=== PATIENT | female | born 1950 | race Caucasian/White ===

== ENCOUNTER 2017-12-16 10:42 | Outpatient (REF) | payer MEDICARE, BC, SELFPAY ==
[2017-12-16 21:07] LABS: Cholesterol 259 mg/dL (50-200); Glucose 88 mg/dL (70-100); HDL Cholesterol 99 mg/dL (40-60); LDL CHOLESTEROL 144 mg/dL (<100); Triglyceride 60 mg/dL (30-150)
== END 2017-12-16 11:02 ==
LOC: NCHCN 10:42
PROVIDERS: PCP Physician Assistant; Visit Provider Nurse Practitioner Family
DX: E78.5 Hyperlipidemia, unspecified (principal)
CPT/HCPCS: 80061; 82947; 83721

== ENCOUNTER 2019-07-19 09:35 | Outpatient (CLI) | payer MEDICARE, BC, SELFPAY ==
[2019-07-20 13:11] LABS: COVID-19 RT-PCR UVMMC Result Negative (Negative)
== END 2019-07-19 09:55 ==
PROVIDERS: PCP Physician Assistant; Visit Provider Nurse Practitioner Family
DX: Z03.818 Encounter for observation for suspected exposure to other biological agents ruled out (principal)
CPT/HCPCS: U0003

== ENCOUNTER 2021-08-02 13:41 | Emergency (ER) | payer MEDICARE, SELFPAY ==
[2021-08-02 13:44] VITALS: BP 141/69; PULSE 95; RESP 16; TEMP 36.4; O2SAT 98
--- NOTE | 2021-08-02 13:52 | ED.GENADUL_ITS ---
Discharge Plan Disposition Patient Disposition: HOME Condition: Improving Discharge Details Chief Complaint: Orthopedic Clinical Impression: Closed fracture of left distal radius Primary Care Provider: Don Brito ED Provider: Yovanny Sage Discharge Instructions Instructions: Wrist Fracture in Adults (ED) Additional Instructions: Elevate above the level of heart to reduce pain and swelling. Apply ice through the casting material to reduce swelling. May use Tylenol and/or ibuprofen as needed for pain. I have referred you to orthopedics. Due to your time constraints, please call the office Thursday morning at [phone] for a follow-up appointment. Return to the ER for any acute concerns. Keep the casting material clean and dry. May use a sling as needed for comfort Medical Decision Making 71-year-old female who slipped and fell on a carpeted floor last evening. She developed pain and swelling overnight of the left wrist. She did not injure herself in any other way. Patient presented to the ER with rings on the left ring finger which were removed. Her exam revealed swollen and tender left radius for which she was referred to x-ray which reveals a transverse left distal radius fracture and ulnar styloid fracture. Patient placed in sugar-tong splint and I will have her follow-up in orthopedics. HPI General Mode of arrival: ambulatory . Date/Time Provider Initiated Documentation: 08/02/21 13:48 . Limitations to Documentation: no limitations . Information obtained by: patient . History of Present Illness 71 year old F presents to the emergency department with the chief complaint of Fall, left wrist pain, described as moderate, Quality is described as dull, and is localized to the left and upper extremity. Patient reports no radiation. [place] started experiencing this hour(s) and it has been constant. Rest improves symptom(s), Movement worsens symptoms . Patient notes denies headaches and syncope. General Stated Complaint: Orthopedic AMANDO: 3 Review of Systems Narrative: Denies other injury, otherwise healthy, no recent illness PFSH All Active Problems (Updated 08/02/21 @ 15:04 by Yovanny Sage MD) Closed fracture of left distal radius (Acute) Social History Smoking risk assessment performed?: No Exam Narrative Exam Narrative: GEN: awake, alert, oriented 3. Pleasant, well groomed, interactive. HEAD: Normocephalic, atraumatic NECK: Full ROM, nontender CHEST/RESP: Nontender, no respiratory distress EXT: Full ROM, left distal radius tender, swollen, ecchymosis present. Distal motor and sensory function is intact. Cap refill less than 2 Neuro: Grossly normal neurologic exam, conversant, interactive. Psych: Speech fluent, thoughts congruent, affect normal Course Vital Signs Vital signs: Vital Signs Temperature 36.4 C L 08/02/21 13:44 Pulse 95 H 08/02/21 13:44 Respiratory Rate 16 08/02/21 13:44 Blood Pressure 141/69 H 08/02/21 13:44 Pulse Oximetry 98 08/02/21 13:44 Temperature 36.4 C L 08/02/21 13:44 Temperature Source Skin 08/02/21 13:44 Pulse 95 H 08/02/21 13:44 Respiratory Rate 16 08/02/21 13:44 Blood Pressure 141/69 H 08/02/21 13:44 Blood Pressure Position Sitting 08/02/21 13:44 Pulse Oximetry 98 08/02/21 13:44 Oxygen Delivery Method Room Air 08/02/21 13:44 Oxygen Flow Rate 0 08/02/21 13:44 Pain Level 8 08/02/21 13:44 Procedures Orthopedic Splinting/Casting Injury #1: Side: left Upper Extremity Injury Location: wrist Upper Extremity Immobilizer: sugartong splint
[2021-08-02] MEDS: Ibuprofen 600 MG TAB PO (14:12)
--- NOTE | 2021-08-02 14:20 | DI.RAD_ITS ---
Exam(s) XR WRIST LT COMPLETE EXAM: XR WRIST LT COMPLETE CLINICAL HISTORY: fall, pain. TECHNIQUE: 2D digital imaging was performed of the left wrist. Three images were obtained. PA, obl ique and lateral views were obtained. COMPARISON: No exams were available for comparison FINDINGS: BONES: There is an acute transverse fracture through the distal metaphysis of the left radius. There is slight posterior displacement and angulation of the fracture noted. There is a question of exten ghulam of the fracture into the radiocarpal joint medially. No bony destructive lesion is seen. There is a mildly displaced ulnar styloid process fracture. JOINTS: The carpal bones are normally aligned. SOFT TISSUE: Normal. IMPRESSION: Distal left radial and ulnar fractures. DATA REPOSITORY: RADIATION DOSE DELIVERED:
== END 2021-08-02 15:22 | disposition home or self-care (01) ==
PROVIDERS: Emergency Provider Emergency Medicine; PCP Internal Medicine
DX: S52.592A Other fractures of lower end of left radius, initial encounter for closed fracture (principal); W01.0XXA Fall on same level from slipping, tripping and stumbling without subsequent striking against object, initial encounter
CPT/HCPCS: 29125; 99283; 73110

== ENCOUNTER 2021-08-05 08:56 | Outpatient (CLI) | payer MEDICARE, SELFPAY ==
[2021-08-05 11:22] LABS: Source Nasal/Nares
[2021-08-05 19:41] LABS: COVID-19 PCR Negative (Negative)
== END 2021-08-05 08:57 | disposition home or self-care (01) ==
LOC: LBO 08:57
PROVIDERS: PCP Internal Medicine; Visit Provider Student in an Organized Health Care Education/Training Program
DX: Z20.822 Contact with and (suspected) exposure to COVID-19 (principal); Z01.818 Encounter for other preprocedural examination
CPT/HCPCS: 87635

== ENCOUNTER 2021-08-06 06:12 | Day surgery (SDC) | payer MEDICARE, SELFPAY ==
[2021-08-06 06:15] VITALS: BP 132/72; PULSE 83; RESP 16; TEMP 36.3; O2SAT 97
--- NOTE | 2021-08-06 06:43 | ANES.PREOP_ITS ---
General Info Date of Service Date Performed: 08/06/21 Height: 5 ft 3 in Weight: 64.4 kg Body Mass Index (BMI): 25.1 Surgical Procedure: Operation Date: 08/06/21 07:40 Proposed Procedure Side Surgeon p Closed Reduction Distal Radius/ Casting Left Napoleon Duke MD Meds Allergies and Home Medications Allergies Allergy/AdvReac Type Severity Reaction Status Date / Time Sulfa (Sulfonamide Allergy Intermediate Other (See Unverified 08/06/21 06:31 Antibiotics) Comment) Home Medication Medication Instructions Recorded L.acidophil,rhamnosus-B.breve,longum 1 cap PO DAILY 08/05/21 20 billion cell sprinkle capsule (Probiotic) acetaminophen 500 mg tablet 500 mg PO DIRECTED 08/05/21 ascorbic acid (vitamin C) 500 mg 1,000 mg PO DAILY 08/05/21 tablet (Vitamin C) calcium carbonate 600 mg-vitamin 1 tab PO DAILY 08/05/21 D3 5 mcg (200 unit) tablet flaxseed oil 1,000 mg capsule 1,200 mg PO DAILY 08/05/21 ibuprofen 200 mg tablet 400 mg PO Q4H PRN 08/05/21 magnesium 100 mg tablet 100 - 200 mg PO DAILY 08/05/21 Current Visit Medications: Current Medications Generic Name Dose Route Start Last Admin Trade Name Freq PRN Reason Stop Dose Admin Ringer's Solution 1,000 mls @ 80 mls/hr 08/06/21 06:00 IV 09/04/21 23:59 INFUSION EWELINA IV Miscellaneous Supplies 1 each 08/06/21 06:00 Iv Access IV 09/04/21 23:59 DIRECTED EWELINA Sodium Chloride 0 ml 08/06/21 06:00 Normal Saline Flush 10 Ml Syr IV 09/04/21 23:59 PRN PRN Sodium Chloride 0 ml 08/06/21 06:00 Normal Saline 10 Ml Vial IJ 09/04/21 23:59 DIRECTED PRN Sterile Water 0 ml 08/06/21 06:00 Water,Injection,Sterile 10 Ml Vial IJ 09/04/21 23:59 DIRECTED PRN PFSH Active Problems Active Problems: Problem Status Onset Code Closed fracture of left distal radius S52.502A Medical History Medical History History of diverticulosis Hx of colonic polyp Hx of osteopenia Medical History Comments:: Per pt. states when she had a colonoscopy, during her recovery she had low BP, stated the top number was around 85, they gave me extr a fluids and it went back up Surgical History Surgical History Hx of colonoscopy Tobacco Smoking/Tobacco Use Status: Former Tobacco Use Alcohol Alcohol Intake: current Alcohol intake frequency: 0-2 drinks per day Alcohol type: wine Substance Use Substance use: Never Substance use type: does not use Vital Signs and Lab Results Vital Signs Most Recent Vital Signs in EMR: Most Recent Vital Signs Temp Pulse Resp BP Pulse Ox 36.3 C L 83 16 132/72 97 08/06/21 06:15 08/06/21 06:15 08/06/21 06:15 08/06/21 06:15 08/06/21 06:15 Lab Results Blood Type / Crossmatch: No Data to Display Complete Blood Count: No Data to Display Complete Metabolic Panel: No Data to Display Liver Function Panel: No Data to Display Coagulation Panel: No Data to Display Cardiac Panel: No Data to Display Arterial Blood Gas: No Data to Display Venous Blood Gas: No Data to Display Pancreas Panel: No Data to Display Thyroid Panel: No Data to Display Infectious Disease: Coronavirus (COVID-19)(PCR) Negative (Negative) 08/05/21 10:25 Coronavirus 2019 Source Nasal/Nares 08/05/21 10:25 Blood Cultures: No Data to Display Toxicology Panel: No Data to Display Anesthesia Assessment and Plan Anesthesia History Personal History: Other Family History: No Family History of Anesthesia Complications Exercise Tolerance Exercise Tolerance: Metabolic Equivalents>4 Pertinent Negatives Pertinent Negatives: No Symptoms of GERD, No Major Cardiovascular Symptoms or Complaints, No Major Pulmonary Symptoms or Complaints and No History of CVA/TIA Cardiac & Pulmonary Exam Cardiac Exam: Normal S1/S2 Heart Sounds Pulmonary Exam: Clear Bilateral Breath Sounds Implantable Cardiac Device Does patient have a Pacemaker or an ICD?: No Airway Exam Known Difficult Airway: No Mallampati Class: 2 Mouth Opening: Normal (> 3cm) Thyromental Distance: Greater than 3 cm Neck Range of Motion: Full ROM Neck Circumference: Normal Teeth Condition: Normal Dentition ASA Classification ASA Score: ASA 2 Emergency Case?: No NPO Status NPO Status: NPO Clears >2 hours, Solids >8 hours Anesthesia Plan Resuscitation Status: Full Code Anesthesia Technique: General Anesthesia Airway Planned: Natural Airway Monitors Used: Standard Monitors
--- NOTE | 2021-08-06 06:45 | DI.RAD_ITS ---
Exam(s) XR WRIST LT LIMITED EXAM: XR WRIST LT LIMITED CLINICAL HISTORY: fractured left distal radius TECHNIQUE: 2D and realtime digital imaging was performed. COMPARISON: CR XR WRIST LT COMPLETE from 08/02/2021 FINDINGS: C-arm fluoroscopy was utilized by Dr. Duke during apparent reduction of fracture of the distal ra dius. Hard copy show the wrist in a cast which obscures bony detail. IMPRESSION: RADIATION DOSE DELIVERED: raul Cid=0.01 mGy Total DLP
[2021-08-06] MEDS: Lactated Ringers 1,000 ML 80 ML IV (06:49)
--- NOTE | 2021-08-06 06:49 | W.ANESPRE ---
General Info Date of Service Date Performed: 08/06/21 Height: 5 ft 3 in Weight: 64.4 kg Body Mass Index (BMI): 25.1 Surgical Procedure: Operation Date: 08/06/21 07:40 Proposed Procedure Side Surgeon p Closed Reduction Distal Radius/ Casting Left Napoleon Duke MD Meds Allergies and Home Medications Allergies Allergy/AdvReac Type Severity Reaction Status Date / Time Sulfa (Sulfonamide Allergy Intermediate Other (See Unverified 08/06/21 06:31 Antibiotics) Comment) Home Medication Medication Instructions Recorded L.acidophil,rhamnosus-B.breve,longum 1 cap PO DAILY 08/05/21 20 billion cell sprinkle capsule (Probiotic) acetaminophen 500 mg tablet 500 mg PO DIRECTED 08/05/21 ascorbic acid (vitamin C) 500 mg 1,000 mg PO DAILY 08/05/21 tablet (Vitamin C) calcium carbonate 600 mg-vitamin 1 tab PO DAILY 08/05/21 D3 5 mcg (200 unit) tablet flaxseed oil 1,000 mg capsule 1,200 mg PO DAILY 08/05/21 ibuprofen 200 mg tablet 400 mg PO Q4H PRN 08/05/21 magnesium 100 mg tablet 100 - 200 mg PO DAILY 08/05/21 Current Visit Medications: Current Medications Generic Name Dose Route Start Last Admin Trade Name Freq PRN Reason Stop Dose Admin Ringer's Solution 1,000 mls @ 80 mls/hr 08/06/21 06:00 IV 09/04/21 23:59 INFUSION EWELINA IV Miscellaneous Supplies 1 each 08/06/21 06:00 Iv Access IV 09/04/21 23:59 DIRECTED EWELINA Sodium Chloride 0 ml 08/06/21 06:00 Normal Saline Flush 10 Ml Syr IV 09/04/21 23:59 PRN PRN Sodium Chloride 0 ml 08/06/21 06:00 Normal Saline 10 Ml Vial IJ 09/04/21 23:59 DIRECTED PRN Sterile Water 0 ml 08/06/21 06:00 Water,Injection,Sterile 10 Ml Vial IJ 09/04/21 23:59 DIRECTED PRN PFSH Active Problems Active Problems: Problem Status Onset Code Closed fracture of left distal radius S52.502A Medical History Medical History History of diverticulosis Hx of colonic polyp Hx of osteopenia Medical History Comments:: Per pt. states when she had a colonoscopy, during her recovery she had low BP, stated the top number was around 85, they gave me extra fluids and it went back up Surgical History Surgical History Hx of colonoscopy Tobacco Smoking/Tobacco Use Status: Former Tobacco Use Alcohol Alcohol Intake: current Alcohol intake frequency: 0-2 drinks per day Alcohol type: wine Substance Use Substance use: Never Substance use type: does not use Vital Signs and Lab Results Vital Signs Most Recent Vital Signs in EMR: Most Recent Vital Signs Temp Pulse Resp BP Pulse Ox 36.3 C L 83 16 132/72 97 08/06/21 06:15 08/06/21 06:15 08/06/21 06:15 08/06/21 06:15 08/06/21 06:15 Lab Results Blood Type / Crossmatch: No Data to Display Complete Blood Count: No Data to Display Complete Metabolic Panel: No Data to Display Liver Function Panel: No Data to Display Coagulation Panel: No Data to Display Cardiac Panel: No Data to Display Arterial Blood Gas: No Data to Display Venous Blood Gas: No Data to Display Pancreas Panel: No Data to Display Thyroid Panel: No Data to Display Infectious Disease: Coronavirus (COVID-19)(PCR) Negative (Negative) 08/05/21 10:25 Coronavirus 2019 Source Nasal/Nares 08/05/21 10:25 Blood Cultures: No Data to Display Toxicology Panel: No Data to Display Anesthesia Assessment and Plan Anesthesia History Personal History: No History of Anesthesia Complications Family History: No Family History of Anesthesia Complications and Malignant Hyperthermia Exercise Tolerance Exercise Tolerance: Metabolic Equivalents>4 Cardiac & Pulmonary Exam Cardiac Exam: Normal S1/S2 Heart Sounds Pulmonary Exam: Clear Bilateral Breath Sounds Implantable Cardiac Device Does patient have a Pacemaker or an ICD?: No Airway Exam Known Difficult Airway: No Mallampati Class: 2 Mouth Opening: Normal (> 3cm) Thyromental Distance: Greater than 3 cm Neck Range of Motion: Full ROM Neck Circumference: Normal Teeth Condition: Normal Dentition ASA Classification ASA Score: ASA 2 Emergency Case?: No NPO Status NPO Status: NPO Clears >2 hours, Solids >8 hours Anesthesia Plan Resuscitation Status: Full Code Anesthesia Technique: General Anesthesia Airway Planned: Natural Airway Monitors Used: Standard Monitors
--- NOTE | 2021-08-06 07:07 | HPE_ITS ---
Assessment and Plan Assessment and plan (1) Closed fracture of left distal radius: Status: Acute Assessment and plan: Ciarra is a 71-year old who suffered a closed fracture of her left distal radius. Given the dorsal displacement and angulation I recommended that we proceed with a closed reduction and casting. There does not appear to be significant comminution about the fracture site and no significant intra- articular involvement which would make this amenable to closed treatment. I did discuss her options to include leaving it where it is knowing that her function will likely be okay versus a close reduction recommended versus surgical fix ation. She agrees to proceed with a close reduction. I did discuss the risk of the close reduction to include loss of reduction, malunion, nonunion, pain, stiffness, cast complications, need for repeat procedures. Despite these risk, she elects to proceed. History of Present Illness History of Present Illness Chief Complaint: Left wrist fracture Narrative: Ciarra is a 71-year-old who had a fall landing on her left hand. She had immediate pain and deformity. She was seen in the emergency department and diagnosed with a left distal radius fracture. She is placed into a sugar-tong splint. I have reviewed the x-rays presented by the emergency department and recommended a close reduction. I called Ciarra with these recommendations and she agreed to proceed. She is here today for close reduction and casting. She denies having any significant pain. She denies numbness or tingling. She does have some discomfort from the splint at the level of her fingers and her elbow. She denies any head trauma at time of injury. Review of Systems All systems reviewed & are unremarkable except as noted in HPI and below PFSH All Active Problems Closed fracture of left distal radius (Acute) Medical History History of diverticulosis Hx of colonic polyp Hx of osteopenia Surgical History Hx of colonoscopy Social History Smoking/Tobacco Use Status: Former Tobacco Use Quit Date: 03/16/77 Smoking risk assessment performed?: Yes Alcohol Intake: current Alcohol Intake frequency: 0-2 drinks per day Alcohol type: wine Drug use: Never Substance use type: does not use Do you feel safe at home: Yes Do you feel safe in your relationship?: Yes Meds Allergies and Home Medications Allergies Allergy/AdvReac Type Severity Reaction Status Date / Time Sulfa (Sulfonamide Allergy Intermediate Other (See Unverified 08/06/21 06:31 Antibiotics) Comment) Home Medications Medication Instructions Recorded Confirmed Type L.acidophil,rhamnosus-B.breve,longum 1 cap PO DAILY 08/05/21 08/06/21 History 20 billion cell sprinkle capsule (Probiotic) acetaminophen 500 mg tablet 500 mg PO DIRECTED 08/05/21 08/06/21 History ascorbic acid (vitamin C) 500 mg 1,000 mg PO DAILY 08/05/21 08/06/21 History tablet (Vitamin C) calcium carbonate 600 mg-vitamin 1 tab PO DAILY 08/05/21 08/06/21 History D3 5 mcg (200 unit) tablet flaxseed oil 1,000 mg capsule 1,200 mg PO DAILY 08/05/21 08/06/21 History ibuprofen 200 mg tablet 400 mg PO Q4H PRN 08/05/21 08/06/21 History magnesium 100 mg tablet 100 - 200 mg PO DAILY 08/05/21 08/06/21 History Exam Resp Auscultation: clear to auscultation bilaterally Cardio Rate: regular rate Rhythm: regular rhythm Extrem Other: Sugar-tong splint about the left arm. There is some swelling of the digits. Cap refill less than 2 seconds. Sensation intact light touch of the median, r adial, ulnar nerve. Results Imaging Imaging Studies: X-ray of the left wrist performed in emergency department shows a distal radius fracture, primarily metaphyseal although there may be a small intra-articular split by the radial styloid. There is some posterior translation and dorsal angulation of about 25 degrees. Last Vital Signs Temp 36.3 C L 08/06/21 06:15 Pulse 83 08/06/21 06:15 Resp 16 08/06/21 06:15 BP 132/72 08/06/21 06:15 Pulse Ox 97 08/06/21 06:15
--- NOTE | 2021-08-06 07:11 | W.PM.DSUDISC ---
Discharge Plan Disposition Patient Disposition: HOME Condition: Good Discharge Details Reason For Visit: (L) DISTAL RADIUS FX Attending Provider: Napoleon Duke Primary Care Provider: Don Brito Home Meds and New Rx's Prescriptions: Continued calcium carbonate-vitamin D3 600 mg-5 mcg (200 unit) Tablet 1 tab PO DAILY acetaminophen 500 mg Tablet 500 mg PO DIRECTED flaxseed oil 1,000 mg Capsule 1,200 mg PO DAILY ascorbic acid (vitamin C) [Vitamin C] 500 mg Tablet 1,000 mg PO DAILY magnesium 100 mg Tablet 100 - 200 mg PO DAILY ibuprofen 200 mg Tablet 400 mg PO Q4H PRN Probiotic 20 billion cell Capsule, Sprinkle 1 cap PO DAILY Discharge Instructions Additional Instructions: Wrist Fracture Closed Reduction Discharge Instructions Activity: You should keep the hand/wrist elevated as much as possible for the first few days. You may use the other fingers as tolerated but avoid trying to do too much too soon. You may perform light activities with the cast in place. Dressing/Cast: Your cast should stay in place at all times. Do NOT get it wet. Medications: - You should take Tylenol (1000mg every 8 hours as needed) and Ibuprofen (600mg every 8 hours as needed) for baseline pain control. - You shouldn't need anything stronger but if you are having pain not controlled, please call Dr. Duke's office to discuss- [phone] - You may apply ice over the wrist, just double bag so it doesn't get wet. Follow-up: 1 week with x-rays Referrals: Napoleon Duke MD [ [facility] STAFF PHYSICIAN] - Equipment/Supplies: Cast Activity:: Elevate Remove Dressings/Wound Care:: Do Not Remove Shower/Bathe:: Cover Diet:: As Tolerated Discharge Orders Discharge Orders: Discharge Order (Routine); Ordered 08/06/21 Ordered By: Martine Royal DS: Diagnosis Discharge Diagnosis (1) Closed fracture of left distal radius: Status: Acute
[2021-08-06 07:25] VITALS: BMI 25.1
[2021-08-06] MEDS: Bupivacaine 0.5% Pres-Free 30 ML VIAL (07:32)
[2021-08-06 07:45] VITALS: BP 119/62; PULSE 69; RESP 16; TEMP 35.9; O2SAT 96
--- NOTE | 2021-08-06 07:48 | W.ANESPOSTOP ---
Postoperative Evaluation Date, Time and Location Date Performed: 08/06/21 Time Performed: 07:49 Patient Location: Day Surgery Unit Vital Signs Most Recent Imported Vital Signs: Most Recent Vital Signs Temp Pulse Resp BP Pulse Ox 36.3 C L 83 16 132/72 97 08/06/21 06:15 08/06/21 06:15 08/06/21 06:15 08/06/21 06:15 08/06/21 06:15 Pain Score Most Recent Pain Score: Most Recent Pain Score Pain Level 3 08/06/21 06:15 Assessment Mental Status: Arousable with meaningful communication Airway and Respiratory Function: Patent airway with normal (patient baseline) respiratory exam Cardiovascular Function: Hemodynamically Stable Hydration Status: Adequately Hydrated Nausea & Vomiting: No Nausea or Vomiting Pain: Pain is tolerable per patient Peripheral Nerve Block: Patient did not receive a nerve block
[2021-08-06] MEDS: Acetaminophen 325 MG TAB 650 MG PO (08:14)
[2021-08-06 08:15] VITALS: BP 132/70; PULSE 72; RESP 18; TEMP 36.2; O2SAT 100
--- NOTE | 2021-08-06 12:59 | W.PM.OP ---
Date of service: 08/06/21 Time of Service: 07:44 Operative Note Operative Note DATE OF PROCEDURE: 08/06/21 PRE-OP DIAGNOSIS: Left Distal Radius Fracture POST-OP DIAGNOSIS: same PROCEDURE: Closed Reduction and Casting of Left Distal Radius Fracture SURGEON: Napoleon Duke TIE CUTTER: Martine Royal ANESTHESIA TYPE: General:No Airway Refer to Anesthesia Record ESTIMATED BLOOD LOSS: 0 TOURNIQUET TIME: 0 COMPLICATIONS: None Indications: Ciarra is a 71-year-old who had a fall onto an outstretched left hand suffering a distal radius fracture. There was displacement with dorsal angulation. Therefore, I recommended close reduction and casting. I reviewed the risk of this with her. These included but were not limited to loss of reduction, malunion, nonunion, need for repeat procedures, cast complications. Despite these risk, she elected to proceed. Findings: There was a dorsally displaced and angulated fracture of the distal radius which is reduced with close reduction. A cast was applied. Procedure Description: Ciarra was greeted the preoperative holding area. Her identity was confirmed the correct site was identified and marked. The consent was reviewed the patient and signed. History physical was updated. She was taken to the operating room. General anesthesia was administered. A timeout was performed for safe surgery. No prophylactic antibiotics are necessary. The splint from the left arm was removed. A hematoma block was performed at the fracture site from a dorsal approach with 10 cc of 0.25% bupivacaine. A close reduction was then performed utilizing recreation of the deformity, traction, and manipulation. The hand was then placed into finger traps and x-ray was obtained. This showed near complete reduction of the fracture site with some slight dorsal translation. This was manipulated a few times but was unable to fully correct the translation although the angulation was much improved. With the arm still in finger traps a short arm cast was applied. This was a well molded cast making sure to pad all bony prominences cast was molded and x-rays utilized to check the reduction. Final x-rays were obtained. The cast was not bivalved given the limited swelling and the duration from the initial injury. She was awakened from anesthesia and transferred back to the PACU in stable condition
== END 2021-08-06 08:47 | disposition home or self-care (01) ==
PROVIDERS: PCP Internal Medicine; Visit Provider Student in an Organized Health Care Education/Training Program
PROC: (CPT 25605; principal; 2021-08-06 07:30)
DX: S52.502A Unspecified fracture of the lower end of left radius, initial encounter for closed fracture (principal); W19.XXXA Unspecified fall, initial encounter; Z87.891 Personal history of nicotine dependence
CPT/HCPCS: 25605; 73100; J1885; J2405

== ENCOUNTER 2021-08-15 12:27 | Outpatient (CLI) | payer MEDICARE, SELFPAY ==
--- NOTE | 2021-08-15 12:15 | DI.RAD_ITS ---
Exam(s) XR WRIST LT LIMITED EXAM: XR WRIST LT LIMITED CLINICAL HISTORY: S/P CLOSED REDUCTION L DISTAL RADIUS. TECHNIQUE: 2D digital imaging was performed. COMPARISON: CR XR WRIST LT COMPLETE from 08/02/2021 FINDINGS: Two views AP and lateral in cast views compared 522 There is stable position alignment fracture fragments. No significant ulnar variance. No additional fractures. No obvious scaphoid fracture IMPRESSION: DATA REPOSITORY: RADIATION DOSE DELIVERED:
== END 2021-08-15 12:28 | disposition home or self-care (01) ==
LOC: DIORS 12:27
PROVIDERS: PCP Internal Medicine; Referring Provider Internal Medicine; Visit Provider Student in an Organized Health Care Education/Training Program
DX: S52.502A Unspecified fracture of the lower end of left radius, initial encounter for closed fracture (principal); X58.XXXA Exposure to other specified factors, initial encounter; Z47.89 Encounter for other orthopedic aftercare
CPT/HCPCS: 73100

== ENCOUNTER 2021-08-22 11:16 | Outpatient (CLI) | payer MEDICARE, SELFPAY ==
--- NOTE | 2021-08-22 11:00 | DI.RAD_ITS ---
Exam(s) XR WRIST LT LIMITED EXAM: XR WRIST LT LIMITED CLINICAL HISTORY: f/u closed reduction left wrist frx. TECHNIQUE: 2D digital imaging was performed. COMPARISON: CR XR WRIST LT LIMITED from 08/15/2021 FINDINGS: Three in cast views Stable alignment at the mildly impacted fracture site in the distal radius. Fracture line still evid ent. No new additional fractures identified. IMPRESSION: DATA REPOSITORY: RADIATION DOSE DELIVERED:
--- OUTSIDE RECORDS SUMMARY | 2021-08-22 11:17 | XMS_ITS | Continuity of Care Document ---
:1950 Author Organization [facility] Address [address] [place] [address] Allergies, Adverse Reactions, Alerts No allergy information available. Medications No medication information available. Problem List No problem information available. Procedures No known history of procedures. Relevant Diagnostic Tests and/or Laboratory Data No known relevant diagnostic tests, laboratory data, and/or discharge summary. Hospital Discharge Instructions No known hospital discharge instructions. Functional Status No known functional status. Immunizations No known immunizations. Plan of Care No Known Plan of Care Information Social History No known social history. Vital Signs No known vital signs results.
--- OUTSIDE RECORDS SUMMARY | 2021-08-22 11:17 | XMS_ITS ---
:1950 Author Care Team Providers Name Role Phone WHITNEY JEAN BAPTISTE MD Primary Care Provider [phone] ROBERT MONTERROSO MD General Surgeon Unavailable Allergies Code Code System Name Reaction Severity Status Onset Sulfa (Sulfonamide Antibiotics) Edema ? Active ? Medications Name Status Start Date Stop Date ? ? Acidophilus Active ? Not available Take 1 tablet daily Ambien CR 6.25 mg tablet,extended release Completed 200907/20/2009 1 (one) Tablet ER: At bedtime as needed calcium carbonate 600 mg-vitamin D3 10 mcg (400 unit) tablet Act tiera ? Not available Take 1 tablet every day by oral route. Cipro 500 mg tablet Completed 10/16/2011 10/19/2011 1 (one) Tablet: Bid - twice daily citalopram 20 mg tablet Completed ? 07/02/19 22 Take 0.5 tablets every day by oral route. Fosamax 70 mg tablet Completed 07/06/2006 01/11/2007 1 Tablet: qweek L-Lysine 500 mg tablet Active ? Not avail able Take 2 tablets every day by oral route. lorazepam 0.5 mg tablet Active ? Not avai lable Take 1 tablet twice a day by oral route as needed. magnesium Active ? Not available Take 1 tablet daily [place] 3 Active ? Not available Take 1 tablet daily prednisone 10 mg tablet Completed ? 12/02/19 20 Prempro 0.3 mg-1.5 mg tablet Completed 01/16/2006 1 (one) Tablet: Daily Shingrix (PF) 50 mcg/0.5 mL intramuscular Active ? Not available suspension, kit triamcinolone acetonide 0.1 % topical cream Active ? Not available APPLY A THIN LAYER TO THE AFFECTED AREA(S) BY TOPICAL ROUTE 2 T IMES PER DAY Vitamin C 1,000 mg tablet Active ? Not av ailable Take 1 tablet every day by oral route. zolpidem 5 mg tablet Active ? Not availab le Take 1 tablet(s) as needed by oral route at bedtime. Problems Name Status Onset Date Source ? Hyperlipidemia Active 04/15/2021 ? Anxiety Active 04/15/2021 ? [place] Node Active 04/15/2021 ? Insomnia Active ? History Menopausal Symptom Active ? History Screening Mammography Unknown ? History Procedures Date Name Performed by ? 07/08/2021 Colonoscopy Information not avai lable Notes: polyp of transverse colon, dive rticulosis of colon 11/13/2017 MAMMO, Screening, Tomosynthesis, [facility] (Internal) Bilateral [address] [place] [address] (Work Place) 08/19/2019 MAMMO, Screening, Tomosynthesis, [facility] (Internal) Bilateral [address] [place] [address] (Work Place) 12/02/2019 MAMMO, Screening, Tomosynthesis, [facility] (Internal) Bilateral [address] [place] [address] (Work [address]) 12/02/2019 DEXA, Axial Skeleton [facility] (Internal) [address] [place] [address] (Work Place) Results Lab Results Date Name Specimen Result Interpretation Description Value Range Status Address ? 07/08/2021 Pathology TISS ? Report (see ? Final No rth Study below) [facility] (Internal) : [address] 12/02/2019 Urinalysis, UR ? UA-col pale pale Final [place] Dipstick, or yellow yellow [facility] (Internal) : [address] ? ? UR ? UA-maranda clear clear Final [facility] (Internal) : [address] ? ? UR ? UA-spe 1.010 1.003-1.0 Final [facility] (Internal) : [address] ? ? UR ? UA-pH 6.0 [pH] 4.6-8.0 Final [place] [pH] [facility] (Internal) : [address] ? ? UR ABNORMAL UA-francisco trace negative Final [place] k Est [facility] (Internal) : [address] ? ? UR ? UA-nit negative negative Final [place] rite [facility] (Internal) : [address] [place] ? ? UR ? UA-pro negative negative Final [place] t [facility] (Internal) : [address] [place] ? ? UR ? UA-glu negative negative Final [place] c [facility] (Internal) : [address] [place] ? ? UR ? UA-ket negative negative Final [place] one [facility] ab (Internal) : [address] ? ? UR ? UA-uro normal normal Final [place] flor [facility] (Internal) : [address] [place] ? ? UR ? UA-flor negative negative Final [place] i [facility] ab (Internal) : [address] ? ? UR ABNORMAL UA-blo trace negative Final [place] od [facility] ab (Internal) : [address] 12/02/2019 Urinalysis, UR ? UA-WBC 0-3 [hpf] 0-3 [hpf] F inal [place] [facility] (Internal) : [address] [place] ? ? UR ? UA-RBC 0-2 [hpf] 0-2 [hpf] Final [place] th [facility] ab (Internal) : [address] [place] ? ? UR ? UA-lubna rare none seen Final [place] teria [hpf] [hpf] [facility] ab (Internal) : [address] ? ? UR ? UA-epi rare none seen Final [place] thelial [hpf] [hpf] [facility] ab (Internal) : [address] [place] ? ? UR ? UA-muc none seen none seen Final Nor th us [hpf] [hpf] [facility] ab (Internal) : [address] 12/02/2019 Pap Test, MISC ? Hpv see ? Final Nor th Thinprep, report [facility] (Internal) : [address] ? ? MISC ? Pap see ? Final North report [facility] (Internal) : [address] ? ? MISC ? Report (see ? Final North below) [facility] (Internal) : [address] Past Encounters None recorded. Social History Tobacco Smoking Status Never Smoker Vaccine List Vaccine Type COVID-19, mRNA, LNP-S, PF, 30 mcg/0.3 mL dose ([place]) 05/15/2020 06/11/2020 12/13/2020 Td (adult), adsorbed Plan of Care Reminders Provider Appointments None recorded. ? ? Lab None recorded. ? ? Referral None recorded. ? ? Procedures None recorded. ? ? Surgeries None recorded. ? ? Imaging None recorded. ? ? Vitals 12/02/2019 01:40PM HME 20 Weight Blood Pressure 61.42 kg 126/78 mm[Hg] 11/13/2017 03:00PM HME 20 Height Weight BMI Blood Pressure 157.48 cm 63.19 kg 25.5 kg/m2 138/76 mm[Hg] 10/25/2015 Blood Pressure 110/80 mm[Hg] 10/25/2015 Height 159.38 cm 01/12/2014 Height Weight 159.38 cm 5.9 kg 01/12/2014 Blood Pressure 122/80 mm[Hg] 12/30/2012 Height Weight 159.38 cm 58.97 kg 12/30/2012 Blood Pressure 112/60 mm[Hg] 11/24/2011 Blood Pressure 112/80 mm[Hg] 11/24/2011 Height Weight 159.38 cm 63.05 kg 11/13/2010 Height Weight 159.38 cm 61.69 kg 11/13/2010 Blood Pressure 126/80 mm[Hg] 07/20/2009 Height Weight 159.38 cm 59.42 kg 07/20/2009 Blood Pressure 110/64 mm[Hg] 04/30/2009 Height Weight 159.38 cm 59.42 kg 04/30/2009 Blood Pressure 112/60 mm[Hg] 02/23/2008 Blood Pressure 112/62 mm[Hg] 02/23/2008 Height Weight 159.38 cm 58.97 kg 01/11/2007 Height Weight 160.02 cm 58.97 kg 01/11/2007 Blood Pressure 108/76 mm[Hg] 12/24/2005 Blood Pressure 120/80 mm[Hg] 12/24/2005 Height Weight 160.02 cm 58.06 kg 11/11/2004 Height Weight 162.56 cm 57.15 kg 11/11/2004 Blood Pressure 116/76 mm[Hg]
--- OUTSIDE RECORDS SUMMARY | 2021-08-22 11:17 | XMS_ITS | Continuity of Care Document ---
:1950 Author Organization [facility] Address [address] [place] [address] Allergies, Adverse Reactions, Alerts No allergy information [...]
--- OUTSIDE RECORDS SUMMARY | 2021-08-22 11:17 | XMS_ITS | Continuity of Care Document ---
:1950 Author Organization [facility] Address [address] [place] [address] Phone Support Name Relationship Address Phone JENNIFER WATERS Daughter Unavailable [phone] Don Brito Primary Care Provider [place] [address] Referral, Self Referring Provider Unavailable Unavailable Elvira Robertson Attending Provider [facility] Primary [place] [address] Allergies, Adverse Reactions, Alerts No allergy information available. Medications No medication information available. Problems No problem information available. Advance Directives Advance Directive Response Recorded Date/Time Does patient have an Advanced Directive? No February 22, 2020 11:05am Do we have a copy on file here at [facility]? No D ecember 2019 11:05am Pt has a Living Will? No February 22, 2020 11:05am Do we have a copy on file here at [facility]? No D ecember 2019 11:05am Pt has a Power of Chicken Sexer? No February 11:05am Do we have a copy on file here at [facility]? No D ecember 2019 11:05am Chief Complaint and Reason for Visit Chief Complaint COVID 19 CONSULT Encounters Encounter Location(s) Arrival/Admit Date Discharge/Depart Date Provider(s) Departed [facility] February 22, 2020 February 22, 2020 Danni Moore Physician/[facility] 11:05am 11:49am Ailyn LOPEZ ider Office Center-[facility] ARC Visit [facility] Primary Assessments No Assessments Information Available Functional Status No Functional Status information available Goals Goals may be documented in an alternate section. Mental Status No Mental Status Information Available Medical Equipment No Medical Equipment Information available Insurance Providers Guarantor MICHELLE RODRIGUEZ Address [address] [place] [id number] Contact Info. Home Phone: Payer Policy Id Coverage Id Subscriber's Subscriber Id Nico Jorge xpiration Name Date Date MEDICARE [id number] MICHELLE Devlin [id number] PART A AND B [employer]AGE SELF PAY Self N/A Plan of Treatment Since pt is a close contact with someone with Covid-19, per CDC guidelines, pt should be on a 14 day quarantine. Per [facility] guidelines: You can end your quarantine period before 14 days only if: ???You have not had symptoms during your quarantine period; ???You are tested on Day 7 or later; ???You remain in quarantine until the result comes back; AND ???You receive a negative test result and are still not having symptoms. ???You continue to monitor yourself for symptoms for the full 14 days. Pt is scheduled for testing in [place] 02/23/20. Pt will schedule testing 02/29/20 -7 days from positive contact. She will schedule this in [place] also. Pt is self- isolating from her daughter today. Future Tests Future scheduled test information is unavailable Pending Tests Pending diagnostic test information is unavailable Future Visits Future appointment information is unavailable Referrals to Other Providers Referral information is unavailable Future Procedures Future procedure information is unavailable Future Medications Future medication information is unavailable Patient Instructions COVID 19 CDC: How to Protect Yourself an d Others v.[id number] COVID-19 CDC: 10 Ways to Manage Respirat ory Symptoms at Home ([facility]) v.09/14/19 COVID-19 [facility]: Curbside Testing ([facility]) COVID-19 [facility]: Close Contact of Someone D iagnosed with COVID-19 ([facility]) v.01/06/20 COVID-19 [facility]: What to do if You are Diag nosed with COVID-19 ([facility]) v.01/06/20 COVID-19 [facility]: Waiting for Test Results ( [facility])v.01/30/20 Social History Assigned Sex Female
== END 2021-08-22 11:17 | disposition home or self-care (01) ==
LOC: DIORS 11:16
PROVIDERS: PCP Internal Medicine; Visit Provider Student in an Organized Health Care Education/Training Program
DX: S52.502A Unspecified fracture of the lower end of left radius, initial encounter for closed fracture (principal); X58.XXXA Exposure to other specified factors, initial encounter
CPT/HCPCS: 73100

== ENCOUNTER 2021-09-06 10:55 | Outpatient (CLI) | payer MEDICARE, SELFPAY ==
--- NOTE | 2021-09-06 09:30 | DI.RAD_ITS ---
Exam(s) XR WRIST LT LIMITED EXAM: XR WRIST LT LIMITED CLINICAL HISTORY: f/u L DISTAL RADIUS FRACTURE. TECHNIQUE: 2D digital imaging was performed of the left wrist. Two images were obtained. PA and la teral views were obtained. COMPARISON: CR XR WRIST LT LIMITED from 08/22/2021 FINDINGS: BONES: There has been no change in alignment of the distal radial fracture. There has been some inte rval healing since the prior examination. The ulnar styloid process fracture appears to be healing w ell. No new fracture is seen. No bony destructive lesion is seen. The cast has been removed. JOINTS: The carpal bones are normally aligned. SOFT TISSUE: Normal. IMPRESSION: Stable distal radial and ulnar fractures. DATA REPOSITORY: RADIATION DOSE DELIVERED:
== END 2021-09-06 10:56 | disposition home or self-care (01) ==
LOC: DIORS 10:55
PROVIDERS: PCP Internal Medicine; Referring Provider Internal Medicine; Visit Provider Physician Assistant
DX: S52.502A Unspecified fracture of the lower end of left radius, initial encounter for closed fracture (principal); X58.XXXA Exposure to other specified factors, initial encounter; Z47.89 Encounter for other orthopedic aftercare
CPT/HCPCS: 73100

== ENCOUNTER 2021-10-04 11:08 | Outpatient (CLI) | payer MEDICARE, SELFPAY ==
--- NOTE | 2021-10-04 10:30 | DI.RAD_ITS ---
Exam(s) XR WRIST LT LIMITED EXAM: XR WRIST LT LIMITED INDICATION: f/u L DISTAL RADIUS FRACTURE. COMPARISON: No exams were available for comparison TECHNIQUE: 2D digital imaging was performed. Two views. FINDINGS: There has been no change in the alignment of the distal radial and ulnar styloid fractures. There pike s been continued healing. No new abnormalities. DATA REPOSITORY: RADIATION DOSE DELIVERED:
== END 2021-10-04 11:09 | disposition home or self-care (01) ==
LOC: DIORS 11:08
PROVIDERS: PCP Internal Medicine; Referring Provider Internal Medicine; Visit Provider Student in an Organized Health Care Education/Training Program
DX: S52.502D Unspecified fracture of the lower end of left radius, subsequent encounter for closed fracture with routine healing (principal); X58.XXXD Exposure to other specified factors, subsequent encounter; Z47.89 Encounter for other orthopedic aftercare
CPT/HCPCS: 73100

== ENCOUNTER → 2021-11-11 08:59 | Outpatient (BNVA) | payer MEDICARE, SELFPAY | PROVIDERS: PCP Internal Medicine; Referring Provider Internal Medicine; Visit Provider Student in an Organized Health Care Education/Training Program | DX: Z47.89 Encounter for other orthopedic aftercare (principal); X58.XXXA Exposure to other specified factors, initial encounter; S52.502A Unspecified fracture of the lower end of left radius, initial encounter for closed fracture ==

== ENCOUNTER 2022-11-22 16:34 | Emergency (ER) | payer MEDICARE, SELFPAY ==
[2022-11-22] VITALS (8 sets, daily range): BP systolic 139–165; BP diastolic 49–95; PULSE 83–95; RESP 18; TEMP 36.7; O2SAT 94–100
--- NOTE | 2022-11-22 16:30 | RT.EKG_ITS ---
APPROVED REPORT Exam: Resting ECG Reason for Exam: epigastric pain Patient Location: E HR:86 bpm ECG Measurements Heart Rate 86 AXIS TN 127 P 39 QRSd 73 QRS 50 QT 364 T 48 QTc 435 Conclusion Sinus rhythm...normal P axis, V-rate 60- 99
[2022-11-22 17:03] LABS: Abs Immature Grans 0.03 10^3/uL (0.0-0.06); Absolute Basophil Count 0.07 10^3/uL (0.0-0.2); Absolute Eosinophil Count 0.17 10^3/uL (0.0-0.7); Absolute Lymphocyte Count 2.96 10^3/uL (1.2-3.4); Absolute Monocyte Count 0.81 10^3/uL (0.1-0.8); Absolute Neutrophil Count 5.46 10^3/uL (1.2-6.7); Basophils % 0.7; Eosinophils % 1.8; HCT 43.8 % (36.0-46.0); HGB 14.7 g/dL (11.2-15.7); Immature Grans % 0.3; Lymphocytes % 31.2; MCH 31.1 pg (27.0-33.0); MCHC 33.6 % (32.0-36.0); MCV 93 fL (80-95); MPV 9.8 fL (8.0-11.0); Monocytes % 8.5; Neutrophils % 57.5; Platelet Count 262 10^3/uL (130-400); RBC 4.73 10^6/uL (3.93-5.22); RDW 12.5 % (11.7-14.6); RDW-SD 42.8 fL
--- NOTE | 2022-11-22 17:07 | ED.GENADUL_ITS ---
Discharge Plan Disposition Patient Disposition: Home Condition: Stable Discharge Details Clinical Impression: Abdominal pain, Gastritis Primary Care Provider: Don Brito ED Provider: Madi Varela Home Meds and New Rx's Prescriptions: Continued alendronate 70 mg tablet 70 mg PO QWEEK calcium carbonate-vitamin D3 600 mg-5 mcg (200 unit) Tablet 1 tab PO DAILY acetaminophen 500 mg Tablet 500 mg PO DIRECTED flaxseed oil 1,000 mg Capsule 1,200 mg PO DAILY ascorbic acid (vitamin C) [Vitamin C] 500 mg Tablet 1,000 mg PO DAILY magnesium 100 mg Tablet 100 - 200 mg PO DAILY ibuprofen 200 mg Tablet 400 mg PO Q4H PRN Probiotic 20 billion cell Capsule, Sprinkle 1 cap PO DAILY Discharge Instructions Instructions: Gastritis (ED) Additional Instructions: I suspect your symptoms are from inflammation or irritation of the stomach follow up with your primary care provider within 1-2 weeks if you develop severe worsening of pain, fevers, or persistent vomiting return to the emergency department you can take mylanta or tums as needed, follow dosing instructions on packaging Medical Decision Making 72 yo female with no significant pmhx and denies prior abdominal surgeries comes in with upper abdominal discomfort that started about an hour ago after having a beer at a restaurant with her significant other. She denies fevers, chills, chest pain, sob. She state the pain is improving. She has tenderness without guarding in the ruq and epigastric area, no distention and no lower abdominal discomfort. Suspect gastritis but will obtain cbc, cmp, lipase and ct abd/pelvis to evaluate for possible pancreatitis and cholecystitis. labs show mild increase in lipase, some white cells in urine but has no urinary symptoms. CT without acute findings. She has no pain now and no tenderness. Suspect gastritis and could have been exacerbated with the alcohol. Discussed results with her and given resolution of pain and no tenderness on exam do not feel further testing indicated. She will f/u with her pcp and return precautions given Differential Diagnosis Differential Diagnosis: gastritis, pancreatitis, cholecystitis Imaging Data Radiologic Study: Attestation: I personally reviewed and interpreted this imaging study as follows: Imaging: CT Scan Radiologist's impression: IMPRESSION: 1. Severe colonic diverticulosis without focal diverticulitis. Minor wall thickening of the sigmoid colon could represent a minor or early colitis process. No mechanical large bowel obstruction. 2. No free fluid or free air. 3. Mild fatty liver infiltration. Benign right hepatic cyst of small size. 4. Degenerative lumbar spine. Lab Data Lab results reviewed: Yes I reviewed the patient's lab results. ECG Data Attestation: I personally reviewed and interpreted this ECG (s) as follows: Prior ECG tracings: not available for review Interpretation: sinus rate of 86, pr 127, no stemi HPI General Mode of arrival: ambulatory . Date/Time Provider Initiated Documentation: 11/22/22 16:34 . Limitations to Documentation: no limitations . Information obtained by: patient . History of Present Illness 72 year old F presents to the emergency department with the chief complaint of upper abdominal pain, described as moderate, Patient started experiencing this hour(s) (1) and it has been other (improving). No relieving factors improve symptom(s), No exacerbating factors reported . Patient notes no other symptoms.. Patient did receive the following treatments prior to arrival, none Related Data Home Medications Medication Instructions Recorded Confirmed L.acidophil,rhamnosus-B.breve,longum 1 cap PO DAILY 08/05/21 11/11/21 20 billion cell sprinkle capsule (Probiotic) acetaminophen 500 mg tablet 500 mg PO DIRECTED 08/05/21 11/11/21 ascorbic acid (vitamin C) 500 mg 1,000 mg PO DAILY 08/05/21 11/11/21 tablet (Vitamin C) calcium carbonate 600 mg-vitamin 1 tab PO DAILY 08/05/21 11/11/21 D3 5 mcg (200 unit) tablet flaxseed oil 1,000 mg capsule 1,200 mg PO DAILY 08/05/21 11/11/21 ibuprofen 200 mg tablet 400 mg PO Q4H PRN 08/05/21 11/11/21 magnesium 100 mg tablet 100 - 200 mg PO DAILY 08/05/21 11/11/21 alendronate 70 mg tablet 70 mg PO QWEEK 09/06/21 11/11/21 Allergies Allergy/AdvReac Type Severity Reaction Status Date / Time Sulfa (Sulfonamide Allergy Intermediate Other (See Unverified 11/22/22 16:39 Antibiotics) Comment) General Stated Complaint: Epigastric Pain/Over45 AMANDO: 3 Review of Systems All systems reviewed & are unremarkable except as noted in HPI and below Constitutional Constitutional: Denies chills, Denies fever(s) and Denies weakness Cardiovascular Cardiovascular: Denies chest pain and Denies dyspnea Respiratory Respiratory: Denies cough and Denies dyspnea Gastrointestinal Gastrointestinal: Denies nausea and Denies vomiting Genitourinary Genitourinary: Denies dysuria Musculoskeletal Musculoskeletal: Denies joint swelling Integumentary/Breasts Skin/Breast: Denies rash Neurologic Neurologic: Denies weakness PFSH All Active Problems (Updated 11/22/22 @ 18:47 by Madi Varela MD) Abdominal pain (Acute) Gastritis (Acute) Closed fracture of left distal radius (Acute) Medical History History of diverticulosis Hx of colonic polyp Hx of osteopenia Surgical History Hx of colonoscopy Social History Smoking/Tobacco Use Status: Former Tobacco Use Quit Date: 03/16/77 Smoking risk assessment performed?: Yes Alcohol Intake: current Alcohol Intake frequency: 0-2 drinks per day Alcohol type: wine Drug use: Never Substance use type: does not use Housing: house Do you feel safe at home: Yes Do you feel safe in your relationship?: Yes Exam Const General: no acute distress Orientation: alert HENMT Head: normal to inspection Ears: external ears normal General nose exam: external nose normal Mouth: moist mucous membranes Eyes General: appearance normal, both eyes and all related structures Neck Neck: normal visual inspection Resp Effort & Inspection: normal respiratory effort and able to speak in complete sentences Cardio Rate: regular rate GI Palpation: soft and tender Skin General skin exam: no rashes or lesions noted Neuro General: patient alert and patient oriented x3 Extrem General: normal to inspection Psych Mental Status: mental status grossly normal Course Vital Signs Vital signs: Vital Signs Temperature 36.7 C 11/22/22 16:36 Pulse 95 H 11/22/22 16:36 Respiratory Rate 18 11/22/22 16:36 Blood Pressure 153/95 H 11/22/22 16:36 Pulse Oximetry 100 11/22/22 16:36 Temperature 36.7 C 11/22/22 16:36 Pulse 95 H 11/22/22 16:36 Respiratory Rate 18 11/22/22 16:36 Respiratory Effort Normal 11/22/22 16:46 Blood Pressure 153/95 H 11/22/22 16:36 Blood Pressure Position Sitting 11/22/22 16:36 Pulse Oximetry 100 11/22/22 16:36 Oxygen Delivery Method Room Air 11/22/22 16:36 Oxygen Flow Rate 0 11/22/22 16:36 Pain Level 7 11/22/22 16:36 PAWSS Have you Been Recently Intoxicated or Drunk Within the Last 30 days?: No Have you Ever Experienced Previous Episodes of Alcohol Withdrawal?: No Have you ever Experienced Withdrawal Seizures?: No Have you ever Experienced Delirium Tremens(DT)s?: No Have you ever undergone Alcohol Rehabilitation Treatment (i.e, inpt ot outpat ient treatment programs)?: No Have you ever Experienced Blackouts?: No Have you ever Combined Alcohol with other Downers within the last 90 days?: No Have you ever Combined Alcohol with any other Substance of Abuse during the last 90 days?: No Positive Blood Alcohol level on Presentation? [PCS.BAL]: No Evidence of Increased Autonomic Activity (i.e. HR>120, tremor, sweating, agitation, nausea)?: No Result: 0
[2022-11-22 17:11] LABS: Bilirubin Negative (Negative); Blood Trace-intact (Negative); Clarity Clear (Clear); Glucose Negative (Negative); Ketones Negative (Negative); Leukocyte Esterase Trace (Negative); Nitrite Negative (Negative); Urobilinogen 0.2 mg/dL (Up to 0.2)
--- NOTE | 2022-11-22 17:15 | DI.CT_ITS ---
Exam(s) CT ABDOMEN PELVIS W EXAM: CT ABDOMEN PELVIS W CLINICAL HISTORY: abd pain. TECHNIQUE: Imaging Protocol: Axial computed tomography images with coronal and sagittal reformatted images were created and reviewed CONTRAST MATERIAL: Intravenous: Omnipaque-350 100cc Oral: None COMPARISON: No exams were available for comparison FINDINGS: VISUALIZED LUNG BASES: No nodules nor pleural effusions evident. ABDOMEN: There is no ascites. LIVER: There is a small benign-appearing hypodensity measuring less than 1 cm in the right hepatic lo be which is probably a benign cyst. There no ominous focal hepatic lesions. No dilated intrahepatic ducts. GALLBLADDER/BILIARY: No obvious gallbladder pathology. CBD is not dilated. PANCREAS: No evidence of pancreatic mass nor dilatation of the pancreatic duct. SPLEEN: Spleen is not enlarged. No obvious intrasplenic lesions. Splenic and portal veins are paten t. ADRENALS: There are no significant adrenal masses. KIDNEYS:No cysts evident. No solid renal masses. No calculi nor hydronephrosis.. ABDOMINAL AORTA: Abdominal aorta is not enlarged. LYMPH NODES:There is no retroperitoneal nor paraaortic adenopathy. ABDOMINAL WALL: No evidence of significant anterior abdominal wall nor inguinal hernia. GI: There is no evidence of bowel obstruction, free air, nor abscess. PELVIS: GI: No evidence of appendicitis.There is extensive diverticulosis of the entire sigmoid. No evidence of obvious acute diverticulitis. No free air. No free fluid. No abscess. LYMPH NODES: There is no intrapelvic nor inguinal adenopathy. REPRODUCTIVE: Uterus and adnexal regions unremarkable. No free fluid. URINARY BLADDER: No calculi nor obvious masses evident OSSEOUS: No fractures and no significant osseous lesions. Multilevel chronic degenerative disc disease lumbar spine. IMPRESSION: 1. There is extensive sigmoid diverticulosis without evidence of obvious acute diverticulitis. No ev idence free air nor free fluid. 2. Small sub cm benign hepatic cyst noted. RADIATION DOSE DELIVERED: 964.6mGy.cm Total DLP DATA REPOSITORY: All CT scans at this facility are submitted to the National Radiology Data Registry (NRDR) Dose Index Registry (DIR) with the [employer] (ACR). RADIATION OPTIMIZATION: All CT scans at this facility use at least one of these dose optimization te chniques: automated exposure control; mA and/or kV adjustment per patient size (includes targeted exa ms where dose is matched to clinical indication); or iterative reconstruction.
[2022-11-22 17:19] LABS: Bacteria Few HPF (Negative); C & S Indicated? Yes; Casts Negative LPF (Negative); Crystals Negative HPF (Negative); Epithelial Cells Few HPF (Negative); Mucus Negative (Negative); RBC 0-2 HPF (0-2)
[2022-11-22 17:27] LABS: ALT 38 U/L (14-59); AST 38 U/L (15-37); Albumin 4.1 g/dL (3.4-5.0); Alkaline Phosphatase 104 U/L (46-116); BUN 16 mg/dL (7-18); Bilirubin, Total 0.4 mg/dL (0.2-1.0); CREATININE 0.9 mg/dL (0.55-1.02); Calcium 10.6 mg/dL (8.5-10.1); Chloride 100 mmol/L (98-107); Estimated GFR 67.92 (mL/min/1.73m2); Glucose 92 mg/dL (74-106); Lipase 87 U/L (16-77); Magnesium 1.9 mg/dL (1.8-2.4); Potassium 3.9 mmol/L (3.5-5.1); Sodium 138 mmol/L (136-145); Total Protein 8.7 g/dL (6.4-8.2); Troponin I < 50 ng/L (<or=60)
[2022-11-22] MEDS: Omnipaque 350 MG/ML 100 ML BTL IJ (17:35)
[2022-11-22] MEDS: Normal Saline - Diluent 50 ML VIAL IJ (17:36)
--- NOTE | 2022-11-22 18:08 | DI.VRAD_ITS ---
PROCEDURE INFORMATION: Exam: CT Abdomen And Pelvis With Contrast Exam date and time: 11/22/2022 5:37 PM Age: 72 years old Clinical indication: Abdominal pain; Patient HX: Abd pain TECHNIQUE: Imaging protocol: Computed tomography of the abdomen and pelvis with contrast. COMPARISON: No relevant prior studies available. FINDINGS: Lungs: No acute features of the lung bases. No infiltrates or consolidation. Pleural spaces: No pleural effusion. Heart: Normal heart size. No pericardial effusion. No coronary artery atherosclerotic calcium. Liver: Liver is unremarkable in size and contour. Posterior right hepatic 7 mm low-attenuation focus on series 4: Image 21, most consistent with a benign cyst. Minor fatty infiltration. Gallbladder and bile ducts: The gallbladder is normal in size and shape. No stones or inflammatory changes. Pancreas: The pancreas is normal in contour and attenuation. Spleen: The spleen is normal in size, contour and attenuation. Adrenal glands: The adrenal glands are normal in size and contour bilaterally. Kidneys and ureters: Normal. No hydronephrosis. Stomach and bowel: Gastric morphology is unremarkable. No edema. No gastric outlet obstruction. Small bowel loops are unremarkable in course and caliber. Large bowel is normal in course. There is severe diverticulosis of the sigmoid colon and distal left colon. Mild wall thickening of the sigmoid colon could represent chronic change related to the severe diverticulosis. Can not exclude a mild colitis. No adjacent inflammatory changes. Appendix: A non inflamed appendix is identified on series 4: Images 44-46. Intraperitoneal space: No free fluid. No free air. Minor fatty stranding of the mesenteric root. This is nonspecific and could be related to a previous inflammatory process such as an enteritis. Vasculature: Unremarkable. No abdominal aortic aneurysm. Lymph nodes: Unremarkable. No enlarged lymph nodes. Urinary bladder: Urinary bladder is unremarkable in appearance. No wall thickening. No intravesicular calculi. No intravesicular gas. Reproductive: The uterus and adnexa are unremarkable in appearance. There are no dominant adnexal cysts or masslike features. There are no inflammatory features. No uterine mass evident. Bones/joints: Degenerative lumbar spine. No acute skeletal change. Soft tissues: Minor fat containing umbilical hernia. No acute change.. IMPRESSION: 1. Severe colonic diverticulosis without focal diverticulitis. Minor wall thickening of the sigmoid colon could represent a minor or early colitis process. No mechanical large bowel obstruction. 2. No free fluid or free air. 3. Mild fatty liver infiltration. Benign right hepatic cyst of small size. 4. Degenerative lumbar spine. Dictated and Authenticated by: Obdulio Sky MD. Ordering:DONNELL Zurita MD
== END 2022-11-22 18:53 | disposition home or self-care (01) ==
PROVIDERS: Emergency Provider Emergency Medicine; PCP Internal Medicine
DX: K29.70 Gastritis, unspecified, without bleeding (principal); Z87.891 Personal history of nicotine dependence
CPT/HCPCS: 36415; 80053; 83690; 93005; 99285; 74177; 81003; 81015; 83735; 84484; 85025; 87086; 93010; 99284; J3490

== ENCOUNTER 2023-08-17 18:53 | Outpatient (REF) | payer MEDICARE, SELFPAY ==
[2023-08-17 19:33] LABS: FREE T4 0.96 ng/dL (0.76-1.46); TSH 2.68 uIU/Ml (0.36-3.74)
== END 2023-08-17 18:54 | disposition home or self-care (01) ==
LOC: NCHCN 18:53
PROVIDERS: PCP Internal Medicine; Visit Provider Internal Medicine
DX: F41.9 Anxiety disorder, unspecified (principal)
CPT/HCPCS: 84439; 84443

== ENCOUNTER 2024-10-11 12:58 | Outpatient (REF) | payer MEDICARE, SELFPAY | END 2024-10-11 12:59 | disposition home or self-care (01) | LOC: NCHCN 12:58 | PROVIDERS: PCP Internal Medicine; Visit Provider Internal Medicine | DX: R39.9 Unspecified symptoms and signs involving the genitourinary system (principal) | CPT/HCPCS: 87077; 87086; 87186 ==